=== PATIENT | male | born 1950 | race African-American/Black ===

== ENCOUNTER 2016-12-28 13:22 | Observation (INO) | payer MEDICAID, OTHER ==
[~2016-12-28 13:22] MED LIST: ACET325T21 PO; ASPI-482 PO; CALC0.5C PO; CICL6.1H3 IH; CLOP75TA57 PO; HUM100VI SQ; INSU100V5 IJ; LISI40TA PO; NITR0.4T22 SL; NPH,100V SQ; SIMV20TA PO
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
[2016-12-28 14:01] LABS: BASO # 0.1 x10^3/uL (0.0-0.2); BASO % 1 % (0-3); EOS % 3 % (0-3); HEMATOCRIT 32.2 % (39.0-53.0); HEMOGLOBIN 10.6 g/dL (13.0-17.5); LYMPH # 0.7 x10^3/uL (1.0-4.8); LYMPH % 9 % (24-48); MEAN CORPUSCULAR HEMOGLOBIN 31 pg (25-35); MEAN CORPUSCULAR HGB CONC 33 g/dL (31-37); MEAN CORPUSCULAR VOLUME 94 fL (79-100); MONO % 13 % (0-9); NEUT % 74 % (31-73); PLATELET COUNT 288 x10^3/uL (140-400); RED BLOOD COUNT 3.41 x10^6/uL (4.30-5.70); WHITE BLOOD COUNT 7.7 x10^3/uL (4.0-11.0)
--- NOTE | 2016-12-28 14:09 | EKG ---
[facility] [address] [place] [address] Test Date: 2016-12-28 Test Time: 13:43:49 Pat Name: APOLONIA ALARCON Department: Room: Gender: M Complaints Coordinator: : 1950 Requested By: DEBRA CORLEY Order Number: [id number] Reading MD: Winston Ramirez Measurements Intervals [place] Rate: 74 P: 0 AK: 74 QRS: -117 QRSD: 126 T: 109 QT: 426 QTc: 473 Interpretive Statements SINUS RHYTHM ATRIAL PREMATURE COMPLEX(ES) LOW VOLTAGE LEFT ANTERIOR FASCICULAR BLOCK NON SPECIFIC INTRAVENTRICULAR BLOCK RVH WITH REPOLARIZATION ABNORMALITY RI6.01 Unconfirmed report Compared to ECG 02/19/2016 11:59:41 Low QRS voltage now present Left anterior fascicular block now present Atrial fibrillation no longer present Electronically Signed On 12-28-2016 17:48:05 CDT by Winston Ramirez
[2016-12-28 14:14] LABS: CALCIUM 7.2 mg/dL (8.5-10.1); CREATININE 8.3 mg/dL (0.7-1.3); GFR 7.8; POTASSIUM 4.3 mmol/L (3.5-5.1)
--- NOTE | 2016-12-28 14:17 | RAD ---
Portable chest, 12/28/2016: History: Shortness of breath, coronary artery disease Comparison is made to a study from 02/19/2016. There has been a previous median sternotomy the heart is moderately enlarged. The pulmonary vascularity is at the upper limits of normal. Inferolateral pleural thickening in the right has increased slightly with minimal extension into the minor fissure. The appearance suggests pleural fluid and/or scarring. There is mild underlying right basilar atelectasis/infiltrate. The left lung is clear. IMPRESSION: 1. Cardiomegaly. 2. Increasing mild right basilar pleural-parenchymal opacities compatible with a small amount of pleural fluid and underlying atelectasis/infiltrate. A component of scarring cannot be excluded.
[2016-12-28 14:20] LABS: ALBUMIN 1.5 g/dL (3.4-5.0); DIRECT BILIRUBIN 0.1 mg/dL (0.0-0.2); MAGNESIUM 1.9 mg/dL (1.8-2.4); TOTAL BILIRUBIN 0.2 mg/dL (0.2-1.0); TOTAL PROTEIN 4.4 g/dL (6.4-8.2)
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
[2016-12-28] MEDS ORDERED: NITROGLYCERIN SUBLINGUAL 0.4 MG BOTTLE OF 25. SL PRN (15:30)
[2016-12-28] MEDS ORDERED: ACETAMINOPHEN 325 MG TABLET. PO PRN (15:30)
[2016-12-28] MEDS ORDERED: CALCITRIOL 0.25 MCG CAPSULE. PO SCH (16:00)
[2016-12-28] MEDS ORDERED: INSULIN REGULAR 100 UNIT/ML 10ML VIAL. SQ SCH (17:00)
[2016-12-28] MEDS ORDERED: INSULIN ASPART 300 UNITS/3 ML INSULN.PEN SQ SCH ×2 (17:00)
[2016-12-28] MEDS ORDERED: IV NORMAL SALINE 1000ML BAG 1,000 ML IV PRN (17:48)
[2016-12-28] MEDS ORDERED: SIMVASTATIN 20 MG TABLET PO SCH (18:00)
[2016-12-28] MEDS ORDERED: DIALYSIS PATIENT. MC PRN ×2 (18:00)
[2016-12-28 18:03] VITALS: BP 110/62
[2016-12-28] MEDS ORDERED: NON FORMULARY ITEM (Ciclesonide (Alvesco) 6.1 GM) IH SCH (21:00)
[2016-12-28] MEDS ORDERED: LISINOPRIL 40 MG TABLET. PO SCH (21:00)
[2016-12-28] MEDS ORDERED: INSULIN DETEMIR 300 UNITS/3 ML INSULN.PEN. SQ SCH (21:00)
[2016-12-29] MEDS ORDERED: CLOPIDOGREL BISULFATE 75 MG TABLET PO SCH (09:00)
[2016-12-29] MEDS ORDERED: ASPIRIN ENTERIC COATED 81 MG TABLET.DR. PO SCH (09:00)
[2016-12-29] MEDS ORDERED: INSULIN ASPART 300 UNITS/3 ML INSULN.PEN SQ SCH (12:00)
[2017-01-02] MEDS ORDERED: NPH,100V SQ (15:49)
[2017-01-02] MEDS ORDERED: ISOS60TA2 PO (16:00)
[2017-01-02] MEDS ORDERED: METO100T11 PO (16:00)
[2017-01-02] MEDS ORDERED: CINA30TA2 PO (16:00)
[2017-01-02] MEDS ORDERED: CAPS42.510 TP (16:00)
[2017-01-02] MEDS ORDERED: METH113. TP (16:00)
[2017-01-02] MEDS ORDERED: CALC667T PO (16:00)
[2017-01-02] MEDS ORDERED: RANI150C PO (16:00)
[2017-01-02] MEDS ORDERED: LISI-338 PO (16:00)
== END 2016-12-28 20:25 ==
LOC: ER 13:22 → EEVIPCON 13:22 → 5 SOUTH 15:00
PROVIDERS: ADMIT Internal Medicine; ATTEND Internal Medicine
DX: I13.2 Hypertensive heart and chronic kidney disease with heart failure and with stage 5 chronic kidney disease, or end stage renal disease (principal); N18.6 End stage renal disease; R60.0 Localized edema; I48.91 Unspecified atrial fibrillation; I25.10 Atherosclerotic heart disease of native coronary artery without angina pectoris; E78.5 Hyperlipidemia, unspecified; I25.2 Old myocardial infarction; J44.9 Chronic obstructive pulmonary disease, unspecified; E11.42 Type 2 diabetes mellitus with diabetic polyneuropathy; E11.22 Type 2 diabetes mellitus with diabetic chronic kidney disease; I50.42 Chronic combined systolic (congestive) and diastolic (congestive) heart failure; E66.9 Obesity, unspecified; E88.09 Other disorders of plasma-protein metabolism, not elsewhere classified; M19.90 Unspecified osteoarthritis, unspecified site; E43 Unspecified severe protein-calorie malnutrition; I51.7 Cardiomegaly; J98.11 Atelectasis; Z86.19 Personal history of other infectious and parasitic diseases; Z95.1 Presence of aortocoronary bypass graft; Z99.2 Dependence on renal dialysis; Z83.3 Family history of diabetes mellitus
CPT/HCPCS: 36415; 71010; 80048; 80076; 82962; 83735; 83880; 84484; 85027; 93005; 99285; G0378; G0379; J1815